=== PATIENT | female | born 1955 | race Caucasian/White ===

== ENCOUNTER 2020-01-31 08:02 | Outpatient (REF) | payer OTHER, SELFPAY ==
--- NOTE | 2020-01-31 08:02 | CT_ITS ---
EXAMINATION: CT CHEST WITH CONTRAST CLINICAL INFORMATION: Lung mass. COMPARISON: Chest x-ray of 01/15/2020, 08/29/2015. Selected images of the abdomen and pelvic CT of 07/27/2018. TECHNIQUE: Multidetector volumetric CT imaging of the chest was obtained after the administration of 65 mL of Omnipaque 350 intravenous contrast without immediate adverse reactions. Axial MIP volume rendering provided. Sagittal and coronal reformatted images were obtained. This CT examination was performed using dose optimization techniques as appropriate, variously including the following: *Automated exposure control *Adjustment of mA and/or kV according to patient size (this includes techniques or standardized protocols for targeted exams where dose is matched to indication/reason for exam; i.e. extremities or head) *Use of iterative reconstruction technique DLP: 101 mGy-cm FINDINGS: LUNGS: There is a large somewhat bilobed heterogeneous mass in the right upper lobe paramediastinal location extending from the lung apex to the level of the distal right main pulmonary artery. There is extrinsic mass effect over the distal right main pulmonary artery and right upper lobe lobar pulmonary artery. There is attenuation of the right upper lobe lobar pulmonary artery which appears to demonstrate enhancement suggesting patency. Large portion of this mass is hypodense in appearance suggestive of internal necrosis. There are solid-appearing areas of heterogeneous enhancement at the junction of upper two thirds and lower two thirds of the mass at the level of lobulation/pulmonary vasculature. The mass is closely abutting the pleura at the superior margin anteromedially and largely appears inseparable from the mediastinal margin of the pleura. The mass slightly extends into the mediastinal fat. It measures approximately 9.8 x 8.6 x 5.4 cm in maximum length, AP and transverse dimensions respectively. Mild ground-glass changes, interstitial septal thickening and vascular engorgement is noted around this mass in the upper lobe. Endobronchial filling defects are noted in the inferior right upper lobe anteromedially. Mild paraseptal emphysematous changes at the lung apices and centrilobular emphysematous changes are noted in the upper lobes. Ill-defined somewhat rounded ground-glass changes are noted in the right lower lobe (series 7 image 235, 253 with the largest one seen on image 253 measuring 1.8 cm. Mild bronchial thickening is noted in the right lower lobe. MEDIASTINUM: Borderline and mildly prominent mediastinal lymph nodes are noted, the largest one in the mid pretracheal region measures 1.1 cm in short axis (series 7 image 150). Precarinal subcentimeter lymph nodes are seen. No evidence of left hilar adenopathy. Evaluation for right hilar adenopathy is limited. The trachea and mainstem bronchi are well patent. There is narrowing of the right upper lobe lobar bronchus related to extrinsic mass effect from the right upper lobe mass. Cardiac size is normal. Central pulmonary arteries are normal in caliber. Aorta is normal in caliber. Scattered aortic calcifications. PLEURA: There is no pleural effusion. No pleural mass or thickening. AXILLA: No lymphadenopathy. CHEST WALL SOFT TISSUES: No evidence of internal mammary chain adenopathy. There is no definite evidence of extension of the right upper lobe lung mass into the chest wall soft tissues. UPPER ABDOMEN: Mild fullness of the visualized adrenal glands is noted without discrete nodule. Postcholecystectomy changes are noted. OSSEOUS STRUCTURES: No acute or suspicious osseous lesion. IMPRESSION: A large bilobed right upper lobe paramediastinal heterogeneously enhancing necrotic lung mass is consistent with malignant neoplasm, unless proven otherwise. A few borderline and mildly prominent mediastinal lymph nodes with the largest pretracheal lymph node measuring 1.1 cm in short axis.
[2020-01-31 09:51] LABS: Blood Urea Nitrogen 10 mg/dL (9-16); Estimated Glomerular Filt Rate > 60
[2020-01-31] MEDS: iohexoL 350 MG/ML 100 ML INFUS..BTL IV (10:56)
== END 2020-01-31 08:03 | disposition home or self-care (01) ==
LOC: HO.CT 08:02
PROVIDERS: PCP Internal Medicine; Visit Provider Internal Medicine
DX: R91.8 Other nonspecific abnormal finding of lung field (principal); R05 Cough
CPT/HCPCS: 71260; 82565; 84520

== ENCOUNTER 2020-01-31 09:26 | Outpatient (REF) | payer OTHER, SELFPAY | END 2020-01-31 09:27 | disposition home or self-care (01) | LOC: HO.RESP 09:26 | PROVIDERS: Visit Provider Internal Medicine | DX: D49.1 Neoplasm of unspecified behavior of respiratory system (principal) ==

== ENCOUNTER → 2020-02-09 09:14 | Outpatient (BNVA) | payer OTHER, SELFPAY | PROVIDERS: PCP Internal Medicine; Referring Provider Internal Medicine; Visit Provider Surgery | DX: R91.8 Other nonspecific abnormal finding of lung field (principal); R59.0 Localized enlarged lymph nodes; F17.200 Nicotine dependence, unspecified, uncomplicated; Z91.048 Other nonmedicinal substance allergy status; Z79.899 Other long term (current) drug therapy | CPT/HCPCS: 99205 ==

== ENCOUNTER 2020-02-21 13:12 | Outpatient (REF) | payer OTHER, SELFPAY ==
--- NOTE | 2020-02-21 13:28 | MR_ITS ---
EXAMINATION: MR BRAIN WITHOUT AND WITH CONTRAST CLINICAL INFORMATION: Right pulmonary malignancy. Metastatic disease workup. COMPARISON: PET/CT from 02/20/2020. TECHNIQUE: MRI of the brain was obtained using routine sequences without and with contrast following the administration of 7 mL of Gadavist intravenous contrast. FINDINGS: No focal restricted diffusion is demonstrated to suggest acute or subacute cerebral ischemia. No evidence of acute or chronic hemorrhagic products on heme-sensitive imaging. Scattered periventricular and deep white matter T2 FLAIR hyperintensities consistent with mild underlying microangiopathy. The ventricles are normal in morphology and size. No abnormal mass effect. No midline shift. Normal appearance of the pituitary gland. No abnormalities of the posterior fossa with normal appearance of the brainstem and cerebellum. Normal arterial and venous vascular flow voids are present. No abnormal contrast enhancement. Normal, homogeneous marrow signal. Small Tornwaldt cyst. Mild leftward nasal septal deviation with spurring. Mild mucosal thickening of the paranasal sinuses. No signal abnormalities of the mastoids. MR/MR head/brain wo/w con IMPRESSION: 1. No acute intracranial abnormalities. No abnormal intracranial enhancement to suggest metastatic disease. 2. Mild underlying microangiopathy.
== END 2020-02-21 13:13 | disposition home or self-care (01) ==
LOC: HO.MRI 13:12
PROVIDERS: Visit Provider Surgery
DX: R91.8 Other nonspecific abnormal finding of lung field (principal); R59.0 Localized enlarged lymph nodes
CPT/HCPCS: 70553; A9585

== ENCOUNTER 2020-03-01 12:23 | Day surgery (SDC) | payer OTHER, SELFPAY ==
[2020-02-29 12:33] VITALS: BMI 26.0
--- NOTE | 2020-02-29 13:19 | P.CONAN_ITS ---
Documented by User: Marielena Nuno 02/29/20 13:24 HPI - Anesthesia Eval Consult details Narrative: 65yo F for Endoscopic Bronchial Ultrasound, Lung Mass biopsy, Lymph Node Biopsy [facility] Past Medical History Medical History Easy bruising History of arthritis History of sleep apnea Leg swelling Mass of upper lobe of right lung Persistent cough Shortness of Breath Wheezing Family History Family History Father Diabetes Colon cancer Mother Osteoporosis Social History Social History Smoking Status: Former smoker Tobacco Type: Cigarette Cigarettes Per Day: 3 Years Smoked: 50 Smoked in Last 30 Days: Yes Smoking Quit Date: 2 days ago Patient Interested in Nicotine Replacement: Yes Patient Given Instructions on How to Stop Smoking: Yes Date Education Initiated: 03/01/20 Second Hand Smoke Exposure: No Use of substances other than those prescribed or required for medical reasons: No Advance Directives: Yes Advance Directives Information Provided: Yes Advance Directives on File: Yes Advance Directives Date on File: 01/31/20 Meds Allergies Allergy/AdvReac Type Severity Reaction Status Date / Time birch tree Allergy Unknown swelling Uncoded 03/01/20 13:10 Exam Exam Date and Time: February 29, 2020 1319 Height,Weight and Vital Signs: Height 5 ft 5 in Weight 71 kg Pertinent Lab Results Pertinent Lab Results: Laboratory Tests 01/31/20 09:15 BUN 10 Creatinine 0.69 Assessment and Plan Assessment Anesthesia Assessment: Chart Reviewed Documented by User: Elisabet Cardoso 03/01/20 13:55 [facility] Past Medical History Medical History Easy bruising History of arthritis History of sleep apnea Leg swelling Mass of upper lobe of right lung Persistent cough Shortness of Breath Wheezing Family History Family History Father Diabetes Colon cancer Mother Osteoporosis Social History Social History Smoking Status: Former smoker Tobacco Type: Cigarette Cigarettes Per Day: 3 Years Smoked: 50 Smoked in Last 30 Days: Yes Smoking Quit Date: 2 days ago Patient Interested in Nicotine Replacement: Yes Patient Given Instructions on How to Stop Smoking: Yes Date Education Initiated: 03/01/20 Second Hand Smoke Exposure: No Use of substances other than those prescribed or required for medical reasons: No Advance Directives: Yes Advance Directives Information Provided: Yes Advance Directives on File: Yes Advance Directives Date on File: 01/31/20 Meds Allergies Allergy/AdvReac Type Severity Reaction Status Date / Time birch tree Allergy Unknown swelling Uncoded 03/01/20 13:10 Exam Airway Mallampati Class: II TM Dist: >3cm Neck ROM: Full Denture: Upper and Lower Assessment and Plan Assessment Anesthesia Assessment: Anesthesia Plan Discussed and Chart Reviewed Final Anesthetic Review NPO: Yes ASA Class: III Final Preanesthetic Review: No Changes in Pt Med Stat, Meds/Allgs Chart Revi ewed, Consent Obtained/Reviewed and Anes Risks/Benef Reviewed Patient Risk: Intermediate Procedure Risk: Intermediate Anesthetic Plan Anesthetic Plan: GA Disposition: Standard PACU
[2020-03-01] VITALS (7 sets, daily range): BP systolic 97–128; BP diastolic 48–68; PULSE 64–89; RESP 14–20; TEMP 36.2–36.3; O2SAT 92–100; BMI 25.6
[2020-03-01] MEDS: Lactated Ringers 1,000 ML 50 ML IVCONT (13:02)
--- NOTE | 2020-03-01 13:55 | MHC.SHP ---
Pre-Procedural Eval Section B Chief Complaint: Enlarged Lymph Nodes, Pulmonary Nodule Allergies: Allergies Allergy/AdvReac Type Severity Reaction Status Date / Time birch tree Allergy Unknown swelling Uncoded 03/01/20 13:10 Plan Patient has been examined and remains a candidate for the planned procedure
--- NOTE | 2020-03-01 15:31 | PM.OP ---
Brief Operative Note Date of Service: 03/01/20 Pre-op diagnosis: Right upper lobe lung mass and mediastinal lymphadenopathy Post-op diagnosis: other (Right upper lobe lung cancer with metastasis to the mediastinal lymph nodes) Procedure: Endobronchial ultrasound with biopsies multiple stations and mediastinal/right upper lobe mass Implants: None Surgeon: Devaughn Ahn MD Anesthesia: GETA Estimated blood loss (mL): 5 Pathology: other (Positive on-site pathology for malignancy in mediastinal lymph nodes and mass) Condition: stable Disposition: PACU
[2020-03-01] MEDS: Throat Lozenge, Medicated LOZENGE 1 LOZENGE MUCOUS MEM ×2 (16:19→16:21)
--- NOTE | 2020-03-02 01:42 | OP_ITS ---
SURGEON: Devaughn Ahn MD PREOPERATIVE DIAGNOSIS: Right upper lobe lung mass and mediastinal lymphadenopathy. POSTOPERATIVE DIAGNOSIS: Right upper lobe lung cancer with metastasis to the mediastinal lymph nodes. PROCEDURE PERFORMED: Endobronchial ultrasound with biopsy of multiple lymph node stations and right upper lobe lung mass. ESTIMATED BLOOD LOSS: Minimal. COMPLICATIONS: ANESTHESIA: General. ASSISTANTS: SPECIMENS: Right paratracheal lymph nodes, right paratracheal mass, subcarinal lymph nodes. INDICATIONS FOR OPERATION: This is a 65-year-old woman smoker who had experienced some right-sided chest pain and had a CT scan of the chest showing a 9 cm bilobed mass in the right upper lobe as well as mediastinal lymphadenopathy. PET scan done showed increased uptake within the mass and less uptake within the mediastinal lymph nodes. Of note, the mass does abut the right main pulmonary artery just prior to takeoff of the first branch. Given these findings, I have discussed with her the risks, benefits, and alternatives of endobronchial ultrasound, which she understood and agreed to proceed. OPERATION IN DETAIL: On the day of operation, the patient was brought to the operating room, placed supine on the operating table. Anesthesia monitoring devices were placed. The patient was intubated with an 8.5-Slovak endotracheal tube. A time-out was performed confirming the correct patient, site, and procedure. The Olympus endobronchial ultrasound scope was then inserted through the endotracheal tube and a standard bronchoscopy was done visualizing both sides down to the subsegmental level. There were no endobronchial lesions and no secretions. We then did a scanning endobronchial ultrasound. There was an apparent right paratracheal what appeared to be the mass separate from a different right paratracheal lymph node and an enlarged abnormal-appearing subcarinal lymph node. The left-sided paratracheal lymph nodes were normal size and appearance and quite diminutive actually. We first positioned over the right paratracheal lymph node, did multiple biopsies of this, confirming the malignancy. Once we confirmed malignancy, additional passes with the 19-gauge Olympus endobronchial ultrasound needle were used and placed directly in cell block for additional material hopefully for markers. We then proceeded to the right paratracheal mass and did this again confirming malignancy here and again multiple passes were taken and placed directly in satellite for cell block. We then went to a subcarinal lymph node, which appeared very abnormal and enlarged and multiple biopsies of this were taken and sent for on-site evaluation again positive for malignancy, and again multiple passes were taken and placed directly in satellite for cell block. This was all done with the 19-gauge Olympus endobronchial ultrasound needle. Once this was complete, hemostasis was assured and the scope and all equipment was removed. The patient was extubated in the operating room, brought to the recovery room in stable condition. MD JORGE López/KAYLAH / [id number]
== END 2020-03-01 16:26 | disposition home or self-care (01) ==
PROVIDERS: PCP Internal Medicine; Visit Provider Surgery
PROC: (CPT 31629; principal; 2020-03-01 14:00)
DX: C34.91 Malignant neoplasm of unspecified part of right bronchus or lung (principal); C77.1 Secondary and unspecified malignant neoplasm of intrathoracic lymph nodes; R05 Cough; F17.210 Nicotine dependence, cigarettes, uncomplicated
CPT/HCPCS: 31629; 31653; 88172; 88173; 88177; 88305; 88341; 88342; 88360; J2250; J2370; J3010

== ENCOUNTER → 2020-03-08 08:49 | Outpatient (BNVA) | payer OTHER, SELFPAY | PROVIDERS: PCP Internal Medicine; Referring Provider Internal Medicine; Visit Provider Surgery | DX: C34.11 Malignant neoplasm of upper lobe, right bronchus or lung (principal); R59.0 Localized enlarged lymph nodes | CPT/HCPCS: 99214 ==

== ENCOUNTER → 2021-07-25 | Outpatient (RCR) | payer OTHER, SELFPAY ==
[2020-03-18 08:13] VITALS: BP 135/75; PULSE 81; RESP 18; TEMP 36.6; O2SAT 95; BMI 26.3
[2020-03-18] MEDS: oxyCODONE HCl Immed Release 5 MG TABLET PO (09:02)
[2020-03-18 09:03] LABS: MANUAL DIFF FLAG NO
[2020-03-18 09:08] LABS: Basophils Percent Auto 0.3 % (0-2); Eosinophils Absolute Auto 0.5 X10*3/uL (0.0-0.4); Eosinophils Percent Auto 4.7 % (0-4); Hemoglobin 12.7 g/dl (12.0-16.0); Imm Gran Abs Auto 0.04 X10*3/uL (0.00-0.03); Imm Gran Pct Auto 0.4 % (0.0-0.4); Lymphocytes Absolute Auto 1.5 X10*3/uL (1.2-4.9); Lymphocytes Percent Auto 14.1 % (20-40); Mean Corpuscular HGB Conc 32.6 g/dl (31.0-35.0); Mean Corpuscular Hemoglobin 29.8 pg (27.0-33.0); Mean Corpuscular Volume 91.5 fL (80-98); Mean Platelet Volume 9.5 fL (9.4-12.3); Monocytes Absolute Auto 1.2 X10*3/uL (0.1-1.2); Monocytes Percent Auto 11.4 % (2-11); Neutrophils Absolute Auto 7.3 X10*3/uL (2.0-8.3); Neutrophils Percent Auto 69.1 % (45-73); Platelet Count 275 X10*3/uL (160-400); Red Blood Count 4.26 X10*6/uL (4.20-5.50); White Blood Count 10.6 X10*3/uL (4.8-10.8)
--- NOTE | 2020-03-18 09:26 | P.CNHO_ITS ---
Subjective - Subjective Chief complaint: Consult for Squamous Cell carcinoma of Lung, IIIB. Patient: new to practice Consult date: 03/18/20 Requesting Physician: Johnathon. Primary Care Provider: Hebrert Diego MD Medical Summary: DIAGNOSIS: SQUAMOUS CELL CANCER OF LUNG. HPI - Consult Narrative Reason for consult: SQUAMOUS CELL LUNG CANCER. Narrative: Kathie Munoz is a pleasant 65 year old lady, who had symptoms onset back in November. it started with a dry cough. She noted pain in the back of the chest, in between her ribs, especially on exertion, i.e while doing dishes. She recently moved into a new home. While getting out of the tub she fell. She was taken to [facility] [place]. She needed stitches on her scalp. She went to Dr. Diego to have the tequila out. She mentioned the cough and CP. He proceeded with a Cat scan of the chest which revealed: A large bilobed right upper lobe paramediastinal heterogeneously enhancing necrotic lung mass is consistent with malignant neoplasm, unless proven otherwise. A few borderline and mildly prominent mediastinal lymph nodes with the largest pretracheal lymph node measuring 1.1 cm in short axis. She saw Dr. Ahn. He proceeded with a PET scan. This showed: A large intensely FDG avid pulmonary mass with some central necrosis and ca vitation is present in the right upper lobe. This is most consistent with a primary pulmonary malignancy. A single mildly enlarged mid right rectal mediastinal lymph node is present with only minimal FDG activity. This is nonspecific. No additional abnormalities suspicious for metastatic or other malignant lesions are noted. MRI of the head was done as part of the staging. This revealed: Acute intracranial abnormalities. No abnormal intracranial enhancement to suggest metastatic disease. Mild underlying microangiopathy. She also had an Endobrochial U/S and biopsy of the right paratracheal lymph node on 03/[address] Ahn. This revealed: Squamous cell carcinoma, poorly differentiated. Subcarinal lymph node: Metastatic squamous cell carcinoma. PDL 1 and Bautista-TRK studies are case studies are pending. . Review of Systems - Constitutional Reports lack of energy, Reports malaise, Reports weakness, Reports weight loss - Eyes Reports blurry vision - ENT Reports system reviewed and no additional complaints, except as documented Comments: Neck pain, since after the biopsy. grades it as 10 on 1-10 scale. been taking Advil 200 as needed. - Cardiovascular Reports chest pain, Reports shortness of breath Comments: on exertion - Respiratory Reports cough - Gastrointestinal Denies abdominal pain, Denies bloating, Denies bright, red blood in stools, Denies change in bowel habits Comments: colonoscopy 12 years ago, negative - Genitourinary Denies difficulty starting urination - Musculoskeletal Denies back pain - Integumentary/Breasts Skin/Breast: Denies acne - Neurologic Reports system reviewed and no additional complaints, except as documented - Psychiatric Reports anxiety - Endocrine Denies excessive sweating - Hematologic/Lymphatic Denies easy bleeding - Allergic/Immunologic Denies GI upset with certain foods PMFSH Medical History: Medical History (Last Updated 03/18/20 @ 08:21 by Charlotte Fontaine RN) Easy bruising History of arthritis History of sleep apnea Leg swelling Mass of upper lobe of right lung Persistent cough Shortness of Breath Wheezing Functional capacity: independent ambulation Patient : No Family History: Family History (Last Reviewed 03/08/20 @ 12:31 by Devaughn Ahn MD) Father Diabetes Colon cancer Mother Osteoporosis Surgical History: Surgical History (Last Updated 03/18/20 @ 08:21 by Charlotte Fontaine RN) History of appendectomy Hx of cholecystectomy Smoking status: Former smoker Home Medications and Allergies Home Medications Medication Instructions Recorded Confirmed Type ibuprofen [Advil] 400 mg PO Q8H PRN 03/18/20 03/18/20 History Allergies Allergy/AdvReac Type Severity Reaction Status Date / Time birch tree Allergy Mild swelling Uncoded 03/18/20 08:22 Physical Exam Vital signs: Vital Signs Temp 97.8 F 03/18/20 08:13 Pulse 81 03/18/20 08:13 Resp 18 03/18/20 08:13 BP 135/75 03/18/20 08:13 Pulse Ox 95 03/18/20 08:13 Intake & Output 03/17/20 03/18/20 03/18/20 18:59 06:59 18:59 Other: Weight 71.8 kg Weight 71.8 kg - Constitutional Present: moderate distress - Routine HEENT Exam Head: Present: normal inspection ENT: Present: mucous membranes moist - Routine Neck Exam Present: supple - Routine Respiratory Exam Present: decreased breath sounds, CTAB - Routine Cardiovascular Exam Cardiovascular: Present: RRR, S1, S2 - Routine Abdominal Exam Present: soft, nontender - Routine Extremities Exam Present: nontender - Routine Back/Spine/Pelvis Exam Back/Spine: Present: full ROM - Routine Skin Exam Present: intact - Routine Neurological Exam Present: alert, oriented X3 - Detailed Neurological Exam: Coma Scale Eye Opening: Spontaneous (4) - Routine Psychiatric Exam Present: anxious Hem/Onc Consult Result - Labs CBC & Chem 7: 03/18/20 09:00 03/18/20 09:00 Labs: Short CBC 03/18/20 Range/Units 09:00 WBC 10.6 (4.8-10.8) X10*3/uL Hgb 12.7 (12.0-16.0) g/dl Hct 39.0 (37-47) % Plt Count 275 (160-400) X10*3/uL Assessment and Plan (1) Squamous cell carcinoma of right lung Status: Acute This is a pleasant unfortunate 65-year-old lady, who had onset of symptoms back in November. It started with a cough and chest pain radiating towards the back. Further workup, as detailed above, revealed a Squamous Cell Carcinoma of the lung with positive pretracheal and mediastinal lymph node. Stage IIIB. I shared the results with her. Mentioned that at this point, she is unresectable. I offered her combined modality therapy. PLAN: To proceed with combined modality therapy with radiation along with systemic chemotherapy. According to the NCCN guidelines, Will use upfront carboplatin AUC of 2 and paclitaxel 50 milligrams/meter squared weekly, with concurrent RT plus additional 2 cycles every 21 days of full-dose carbo Taxol. If there is no progression after the 2 cycles, of concurrent chemoradiation, she can then get Durvalumab, 10 milligrams/kilograms IV every 2 weeks for up to 12 months. She has an appointment with radiation therapy tomorrow. Will coordinate with them, regarding the timings of treatment. She will get baseline labs today. I gave her a dose of oxycodone here, since it worked I gave her a prescription to take at home q.8 hours as needed for the pain. She will return in a week for a follow-up visit. All her & her 's questions were answered to their satisfaction. Thanks, CC: Dr. Diego. Dr. Ahn. Addendum: She met with Dr. Rudolph, at [facility]. They are currently proceeding with treatment planning. She would be ready to begin treatment in a couple of weeks time. She will return for chemotherapy teaching next week.
[2020-03-18 09:41] LABS: Alanine Aminotransferase 8 U/L (0-31); Albumin Level 3.8 g/dL (3.5-5.0); Alkaline Phosphatase 81 U/L (39-117); Anion Gap 12 (12-20); Aspartate Amino Transferase 10 U/L (5-31); Bilirubin Total 0.4 mg/dL (0.0-1.0); Blood Urea Nitrogen 14 mg/dL (9-16); Calcium 9.1 mg/dL (8.4-10.2); Carbon Dioxide 24 mmol/L (22-29); Chloride 105 mmol/L (96-108); Creatinine Clr Calc Pharmacy 92.2; Estimated Glomerular Filt Rate > 60; Glucose Random 82 mg/dL (60-115); Potassium 4.3 mmol/l (3.3-5.1); Sodium 137 mmol/L (135-145); Total Protein 6.6 g/dL (6.5-8.0)
--- NOTE | 2020-03-18 10:14 | MHC.HEMONCSW ---
PT IS A 65 Y.O. FEMALE, ACCOMPANIED BY TODAY FOR INITIAL CONSULT. INDEPENDENT, ABLE TO MAKE NEEDS KNOWN. HEALTH CARE PROXY COMPLETED, NAMED HER . DIAGNOSIS IS RIGHT LUNG ADENOCARCINOMA MOOD AND AFFECT IS APPROPRIATELY ANXIOUS, WHICH SHE ATTRIBUTES TO #12 PAIN SCALE...MD MEDICATED PT. PLAN IS CONSULT [facility] RADIATION TOMORROW. TO BEGIN CHEMOTHERAPY HERE SOON. EDUCATION, RESOURCES, GUIDANCE AND SUPPORT PROVIDED. BOTH ARE AWARE OF MY AVAILABILITY.
[2020-03-20 14:25] VITALS: BMI 26.3
--- NOTE | 2020-03-22 11:10 | MHC.HEMONCSW ---
DURVALUMAB PA WENT TO [facility] CLINICAL REVIEW J CODE [id number] REFERENCE# [id number] WAIT DECISION. PACLITAXEL NO PA REQUIRED REFERENCE# [id number]. CARBOPLATIN NO PA REQUIRED, REFERENCE # AT [employer] # [id number]
--- NOTE | 2020-03-25 14:39 | MHC.HEMONCSW ---
JEANETTE APPROVED [facility] DATE RANGE...03/25/20 TO 09/21/19 REFERENCE# [id number]
[2020-03-28 08:41] VITALS: BP 132/76; PULSE 84; RESP 20; TEMP 36.4; O2SAT 95
[2020-03-28 08:42] VITALS: BMI 27.0
--- NOTE | 2020-03-28 10:07 | MHC.HEMONC ---
Pt seen by Dr Leonard and had chemo teach. She will start chemoradiation on Wednesday followed by Immunotherapy. Common side effects reviewed and pt plan reviewed. Ondansetron ordered for pt at home and she is aware.
--- NOTE | 2020-03-28 10:30 | MHC.HEMONCSW ---
PATIENT HERE FOR CHEMOTHERAPY TEACH. REPORTS COPING FAIRLY WELL, GLAD TREATMENT IS BEGINNING. DENIES NEW STRESS AND COMPLAINTS AT THIS TIME. PATIENT IS AWARE OF MY AVAILABILITY.
--- NOTE | 2020-03-28 17:38 | PM.HEMONCPN ---
Medical Summary - Medical Summary Date of Service: 03/28/20 Medical Summary: DIAGNOSIS: SQUAMOUS CELL CANCER OF LUNG. Interval History Interval history: Kathie Munoz is a pleasant 65 year old lady, here for a follow-up visit. She tells me she has ongoing pain in her neck and right shoulder. She has been taking Advil every 4 hours, during the day. She takes oxycodone only at night. Occasionally she would take 1 in the morning. She does sleep better, now. She was getting constipated however with the MiraLax it has helped. She is going regularly now. She denies chest pain or trouble breathing. Abdominal pain nausea vomiting heartburn indigestion. Her bowels are working without any gross blood in it. Her appetite is not that good. She has lost weight. Spirits are down. Rest of the review of systems is unremarkable. Previous history: She had symptoms onset back in November. it started with a dry cough. She noted pain in the back of the chest, in between her ribs, especially on exertion, i.e while doing dishes. She recently moved into a new home. While getting out of the tub she fell. She was taken to [facility] [place]. She needed stitches on her scalp. She went to Dr. Diego to have the tequila out. She mentioned the cough and CP. He proceeded with a Cat scan of the chest which revealed: A large bilobed right upper lobe paramediastinal heterogeneously enhancing necrotic lung mass is consistent with malignant neoplasm, unless proven otherwise. A few borderline and mildly prominent mediastinal lymph nodes with the largest pretracheal lymph node measuring 1.1 cm in short axis. She saw Dr. Ahn. He proceeded with a PET scan. This showed: A large intensely FDG avid pulmonary mass with some central necrosis and cavitation is present in the right upper lobe. This is most consistent with a primary pulmonary malignancy. A single mildly enlarged mid right rectal mediastinal lymph node is present with only minimal FDG activity. This is nonspecific. No additional abnormalities suspicious for metastatic or other malignant lesions are noted. MRI of the head was done as part of the staging. This revealed: Acute intracranial abnormalities. No abnormal intracranial enhancement to suggest metastatic disease. Mild underlying microangiopathy. She also had an Endobrochial U/S and biopsy of the right paratracheal lymph node on 03/[address] Ahn. This revealed: Squamous cell carcinoma, poorly differentiated. Subcarinal lymph node: Metastatic squamous cell carcinoma. PDL 1 and Bautista-TRK studies are case studies are pending. . Review of Systems - Constitutional Reports no additional constitutional complaints - Eyes Reports no additional eye complaints - ENT Reports no additional ear, nose, mouth, and throat complaints - Cardiovascular Reports no additional cardiovascular complaints - Respiratory Reports no additional respiratory complaints - Gastrointestinal Reports no additional gastrointestinal complaints - Genitourinary Reports no additional female genitourinary complaints - Musculoskeletal Reports no additional musculoskeletal complaints, Reports joint pain Comments: In her neck and shoulder. - Integumentary/Breasts Skin/Breast: Reports no additional skin complaints - Neurologic Reports no additional neurologic complaints, Reports weakness - Psychiatric Reports no additional psychiatric complaints - Endocrine Reports no additional endocrine complaints - Hematologic/Lymphatic Reports no additional hematologic/lymphatic complaints - Allergic/Immunologic Reports no additional allergic/immunologic complaints [facility] Medical History: Medical History (Last Updated 03/27/20 @ 09:32 by Herbert Diego MD) Carpal tunnel syndrome on both sides Easy bruising Hilar lymphadenopathy History of arthritis History of diverticulitis History of sleep apnea Hypercholesterolemia Leg swelling Mass of upper lobe of right lung Vitamin D deficiency Functional capacity: independent ambulation Family History: Family History (Last Reviewed 03/08/20 @ 12:31 by Devaughn Ahn MD) Father Diabetes Colon cancer Mother Osteoporosis Surgical History: Surgical History (Last Updated 03/25/20 @ 12:12 by Lily Evans [facility]) History of appendectomy History of carpal tunnel release Hx of cholecystectomy Smoking status: Former smoker Home Medications and Allergies Home Medications Medication Instructions Recorded Confirmed Type ibuprofen [Advil] 400 mg PO Q8H PRN 03/18/20 03/18/20 History Allergies Allergy/AdvReac Type Severity Reaction Status Date / Time birch tree Allergy Mild swelling Uncoded 03/18/20 08:22 Exam Vital signs: Vital Signs Temp 97.6 F 03/28/20 08:41 Pulse 84 03/28/20 08:41 Resp 20 03/28/20 08:41 BP 132/76 03/28/20 08:41 Pulse Ox 95 03/28/20 08:41 Intake & Output 03/27/20 03/28/20 03/28/20 18:59 06:59 18:59 Other: Weight 71.4 kg Weight 71.4 kg Body Mass Index 27.0 - Constitutional Present: moderate distress - Routine HEENT Exam Head: Present: normal inspection Eye: Present: normal appearance ENT: Present: mucous membranes moist - Routine Neck Exam Present: full ROM - Routine Respiratory Exam Present: decreased breath sounds, CTAB - Routine Cardiovascular Exam Cardiovascular: Present: RRR, S1, S2 - Routine Abdominal Exam Present: soft, nontender - Routine Rectal Exam Patient deferred: digital exam - Routine Extremities Exam Present: nontender - Routine Back/Spine/Pelvis Exam Back/Spine: Present: full ROM - Routine Skin Exam Present: intact - Routine Neurological Exam Present: alert, oriented X3 - Detailed Neurological Exam: Coma Scale Eye Opening: Spontaneous (4) - Routine Psychiatric Exam Present: normal affect Data - Labs CBC & Chem 7: 03/18/20 09:00 03/18/20 09:00 Labs: 03/18/20 08:42 oxyCODONE HCl Immed Release [Roxicodone] 5 mg PO ONCE ONE 03/18/20 09:00 CEA [Carcinoembryonic Antigen] Routine Complete Blood Count Auto Diff Routine Comprehensive Met. Panel Routine Laboratory Last Values WBC 10.6 X10*3/uL (4.8-10.8) 03/18/20 09:00 RBC 4.26 X10*6/uL (4.20-5.50) 03/18/20 09:00 Hgb 12.7 g/dl (12.0-16.0) 03/18/20 09:00 Hct 39.0 % (37-47) 03/18/20 09:00 MCV 91.5 fL (80-98) 03/18/20 09:00 MCH 29.8 pg (27.0-33.0) 03/18/20 09:00 MCHC 32.6 g/dl (31.0-35.0) 03/18/20 09:00 RDW 13.0 % (11.0-16.0) 03/18/20 09:00 Plt Count 275 X10*3/uL (160-400) 03/18/20 09:00 MPV 9.5 fL (9.4-12.3) 03/18/20 09:00 Immature Gran % (Auto) 0.4 % (0.0-0.4) 03/18/20 09:00 Neut % (Auto) 69.1 % (45-73) 03/18/20 09:00 Lymph % (Auto) 14.1 % (20-40) L 03/18/20 09:00 [place] % (Auto) 11.4 % (2-11) H 03/18/20 09:00 Eos % (Auto) 4.7 % (0-4) H 03/18/20 09:00 Baso % (Auto) 0.3 % (0-2) 03/18/20 09:00 Lymph # (Auto) 1.5 X10*3/uL (1.2-4.9) 03/18/20 09:00 [place] # (Auto) 1.2 X10*3/uL (0.1-1.2) 03/18/20 09:00 Eos # (Auto) 0.5 X10*3/uL (0.0-0.4) H 03/18/20 09:00 Baso # (Auto) 0.0 X10*3/uL (0.0-0.2) 03/18/20 09:00 Abs Immat Gran (auto) 0.04 X10*3/uL (0.00-0.03) H 03/18/20 09:00 Absolute Neuts (auto) 7.3 X10*3/uL (2.0-8.3) 03/18/20 09:00 Absolute Nucleated RBC 0.000 X10*3/uL (0.0-0.012) 03/18/20 09:00 Nucleated RBC % (auto) 0.0 /100WBC (0.0-0.2) 03/18/20 09:00 Sodium 137 mmol/L (135-145) 03/18/20 09:00 Potassium 4.3 mmol/l (3.3-5.1) 03/18/20 09:00 Chloride 105 mmol/L (96-108) 03/18/20 09:00 Carbon Dioxide 24 mmol/L (22-29) 03/18/20 09:00 Anion Gap 12 (12-20) 03/18/20 09:00 BUN 14 mg/dL (9-16) 03/18/20 09:00 Creatinine 0.62 mg/dL (0.5-1.4) 03/18/20 09:00 Estim Creat Clear Calc 92.2 03/18/20 09:00 Estimated GFR > 60 03/18/20:00 Random Glucose 82 mg/dL (60-115) 03/18/20 09:00 Calcium 9.1 mg/dL (8.4-10.2) 03/18/20 09:00 Total Bilirubin 0.4 mg/dL (0.0-1.0) 03/18/20:00 AST 10 U/L (5-31) 03/18/20:00 ALT 8 U/L (0-31) 03/18/20:00 Alkaline Phosphatase 81 U/L (39-117) 03/18/20:00 Total Protein 6.6 g/dL (6.5-8.0) 03/18/20:00 Albumin 3.8 g/dL (3.5-5.0) 03/18/20 09:00 Carcinoembryonic Ag 5.60 mg/mL 03/18/20 09:00 Progress Note: A/P (1) Squamous cell carcinoma of right lung Status: Acute Assessment and plan: This is a pleasant unfortunate 65-year-old lady, who had onset of symptoms back in November. It started with a cough and chest pain radiating towards the back. Further workup, as detailed above, revealed a Squamous Cell Carcinoma of the lung with positive pretracheal and mediastinal lymph node. Stage IIIB. I shared the results with her, at her last visit. Mentioned that at this point, she is unresectable. I offered her combined modality therapy. PLAN: To proceed with combined modality therapy with radiation along with systemic chemotherapy. According to the NCCN guidelines, Will use upfront carboplatin AUC of 2 and paclitaxel 50 milligrams/meter squared weekly, with concurrent RT plus additional 2 cycles every 21 days of full-dose carbo Taxol. If there is no progression after the 2 cycles, of concurrent chemoradiation, she can then get Durvalumab, 10 milligrams/kilograms IV every 2 weeks for up to 12 months. She met with Dr. Rudolph, at [facility]. They are currently proceeding with treatment planning. She would be ready to begin treatment next week. She had chemotherapy teaching today. Details of the regimen including potential side effects of nausea vomiting diarrhea, renal toxicity, pancytopenia, need for antibiotics, blood transfusion as well as growth factors were all addressed with her. She understands and is willing to proceed. She has an appointment with radiation therapy on Wednesday afternoon. She will come here in the morning to get her treatment. She will get baseline labs today. I gave her a new prescription for oxycodone since she is running low. She will return on Wednesday follow-up visit. All her & her 's questions were answered to their satisfaction. Thanks, CC: Dr. Diego. Dr. Ahn. Dr. Rudolph. - Time Spent With Patient Total time spent is greater than 50% in coordination of care (as documented) at patient's floor/unit and/or counseling patient: 25 - 35 minutes
[2020-04-01 08:21] VITALS: BP 142/65; PULSE 82; RESP 18; TEMP 35.8; O2SAT 95; BMI 27.1
[2020-04-01 08:28] LABS: MANUAL DIFF FLAG NO
[2020-04-01 08:55] LABS: Basophils Percent Auto 0.5 % (0-2); Eosinophils Absolute Auto 0.7 X10*3/uL (0.0-0.4); Eosinophils Percent Auto 7.6 % (0-4); Hemoglobin 11.5 g/dl (12.0-16.0); Imm Gran Abs Auto 0.08 X10*3/uL (0.00-0.03); Imm Gran Pct Auto 0.9 % (0.0-0.4); Lymphocytes Absolute Auto 1.1 X10*3/uL (1.2-4.9); Mean Corpuscular HGB Conc 31.9 g/dl (31.0-35.0); Mean Corpuscular Hemoglobin 29.2 pg (27.0-33.0); Mean Corpuscular Volume 91.4 fL (80-98); Mean Platelet Volume 9.7 fL (9.4-12.3); Monocytes Absolute Auto 1.1 X10*3/uL (0.1-1.2); Monocytes Percent Auto 13.1 % (2-11); Neutrophils Absolute Auto 5.7 X10*3/uL (2.0-8.3); Neutrophils Percent Auto 64.9 % (45-73); Platelet Count 296 X10*3/uL (160-400); Red Blood Count 3.94 X10*6/uL (4.20-5.50); Red Cell Distribution Width 12.8 % (11.0-16.0); White Blood Count 8.7 X10*3/uL (4.8-10.8)
[2020-04-01 09:18] LABS: Alanine Aminotransferase 10 U/L (0-31); Albumin Level 3.4 g/dL (3.5-5.0); Alkaline Phosphatase 77 U/L (39-117); Anion Gap 11 (12-20); Aspartate Amino Transferase 9 U/L (5-31); Bilirubin Total 0.3 mg/dL (0.0-1.0); Blood Urea Nitrogen 14 mg/dL (9-16); Carbon Dioxide 26 mmol/L (22-29); Chloride 104 mmol/L (96-108); Creatinine Clr Calc Pharmacy 91.5; Estimated Glomerular Filt Rate > 60; Glucose Random 83 mg/dL (60-115); Potassium 4.4 mmol/l (3.3-5.1); Sodium 137 mmol/L (135-145); Total Protein 6.2 g/dL (6.5-8.0)
[2020-04-01] MEDS: Acetaminophen 325 MG TABLET 650 MG PO (09:30)
[2020-04-01] MEDS: diphenhydrAMINE HCL 50 MG/ML VIAL 25 MG IVPUSH (09:31)
[2020-04-01] MEDS: Famotidine/PF 20 MG/2 ML VIAL IVPUSH (09:32)
[2020-04-01] MEDS: dexAMETHasone sod phosphate/NS 12 MG/50 ML PIGGYBACK 200 MG IV (09:54)
[2020-04-01] MEDS: ondansetron HCL/NS 16 MG/50 ML PIGGYBACK 200 MG IV (10:11)
--- NOTE | 2020-04-01 13:32 | MHC.HEMONCSW ---
PT HERE FOR CHEMOTHERAPY. REPORTS COPING WELL, SLIGHTLY ANXIOUS BUT LOOKS FORWARD TO GETTING IT OVER WITH. PLAN IS RADIATION THEN FOLLOWED BY IMMUNOTHERAPY EDUCATION AND SUPPORT PROVIDED. RETIRED [employer] FOR [employer] IN [place]. PATIENT ENJOYED TELLING ME ABOUT HER WORK HISTORY. DOES NOT FEEL COUNSELING NEEDED. PATIENT IS AWARE OF MY AVAILABILITY..
--- NOTE | 2020-04-01 15:41 | MHC.HEMONC ---
Cycle 1, day 1: Paclitaxel and carbo well tolerated. No complaints or signs of reaction noted. VSS, patient to start radiation today at [facility]. Labs and protocol faxed to [phone]. Confirmation received.
[2020-04-08] VITALS (8 sets, daily range): BP systolic 121–164; BP diastolic 60–101; PULSE 86–92; RESP 18–22; TEMP 36.4–37; O2SAT 80–97; BMI 26.6
[2020-04-08 10:38] LABS: MANUAL DIFF FLAG NO
[2020-04-08 10:50] LABS: Basophils Percent Auto 0.4 % (0-2); Eosinophils Absolute Auto 0.4 X10*3/uL (0.0-0.4); Eosinophils Percent Auto 5.5 % (0-4); Hematocrit 35.7 % (37-47); Hemoglobin 11.8 g/dl (12.0-16.0); Imm Gran Abs Auto 0.09 X10*3/uL (0.00-0.03); Imm Gran Pct Auto 1.2 % (0.0-0.4); Lymphocytes Absolute Auto 0.9 X10*3/uL (1.2-4.9); Lymphocytes Percent Auto 12.2 % (20-40); Mean Corpuscular HGB Conc 33.1 g/dl (31.0-35.0); Mean Corpuscular Hemoglobin 29.9 pg (27.0-33.0); Mean Corpuscular Volume 90.4 fL (80-98); Mean Platelet Volume 9.9 fL (9.4-12.3); Monocytes Percent Auto 13.1 % (2-11); Neutrophils Absolute Auto 5.1 X10*3/uL (2.0-8.3); Neutrophils Percent Auto 67.6 % (45-73); Platelet Count 295 X10*3/uL (160-400); Red Blood Count 3.95 X10*6/uL (4.20-5.50); Red Cell Distribution Width 12.6 % (11.0-16.0); White Blood Count 7.6 X10*3/uL (4.8-10.8)
[2020-04-08 11:12] LABS: Alanine Aminotransferase 18 U/L (0-31); Albumin Level 3.3 g/dL (3.5-5.0); Alkaline Phosphatase 73 U/L (39-117); Anion Gap 9 (12-20); Aspartate Amino Transferase 12 U/L (5-31); Bilirubin Total 0.3 mg/dL (0.0-1.0); Blood Urea Nitrogen 16 mg/dL (9-16); Calcium 8.8 mg/dL (8.4-10.2); Carbon Dioxide 29 mmol/L (22-29); Chloride 103 mmol/L (96-108); Creatinine Clr Calc Pharmacy 85.3; Estimated Glomerular Filt Rate > 60; Glucose Random 85 mg/dL (60-115); Sodium 137 mmol/L (135-145); Total Protein 5.8 g/dL (6.5-8.0)
[2020-04-08] MEDS: dexAMETHasone sod phosphate/NS 12 MG/50 ML PIGGYBACK 200 MG IV (13:05)
[2020-04-08] MEDS: diphenhydrAMINE HCL 50 MG/ML VIAL 25 MG IVPUSH ×2 (13:24→14:55)
[2020-04-08] MEDS: ondansetron HCL/NS 16 MG/50 ML PIGGYBACK 200 MG IV (13:43)
[2020-04-08] MEDS: Hydrocortisone Sod Succ/PF 100 MG VIAL IVPUSH (14:55)
--- NOTE | 2020-04-08 16:46 | MHC.HEMONC ---
Transfusion reaction with Paclitaxel initiated at approx 1450 Please see transfusion reaction intervention for details Patient complained of difficulty breathing and numbness to face and lips Infusion stopped at [address] Good notified and at bedside Hydrocortisone 100mg and Benadryl 25 IV push administered at 1455. 02 applied at 4L NC Respiratory symptoms improved. See documented vital signs. All symptoms resolved and infusion resumed at 1537. No further complaints. Vital signs wnl. 02 sats 95% on room air, continuous [address] Good will order Dexamethasone at home for night prior to treatment and morning of for next cycle.
[2020-04-15 10:25] VITALS: BP 124/64; PULSE 84; RESP 18; TEMP 36.7; O2SAT 97; BMI 26.4
[2020-04-15 10:43] LABS: Basophils Percent Auto 0.2 % (0-2); Eosinophils Percent Auto 0.3 % (0-4); Hematocrit 37.8 % (37-47); Hemoglobin 12.6 g/dl (12.0-16.0); Imm Gran Abs Auto 0.06 X10*3/uL (0.00-0.03); Imm Gran Pct Auto 0.9 % (0.0-0.4); Lymphocytes Absolute Auto 0.3 X10*3/uL (1.2-4.9); Lymphocytes Percent Auto 5.1 % (20-40); MANUAL DIFF FLAG SCAN; Mean Corpuscular HGB Conc 33.3 g/dl (31.0-35.0); Mean Corpuscular Hemoglobin 30.2 pg (27.0-33.0); Mean Corpuscular Volume 90.6 fL (80-98); Mean Platelet Volume 9.8 fL (9.4-12.3); Monocytes Absolute Auto 0.6 X10*3/uL (0.1-1.2); Monocytes Percent Auto 8.7 % (2-11); Neutrophils Absolute Auto 5.5 X10*3/uL (2.0-8.3); Neutrophils Percent Auto 84.8 % (45-73); Platelet Count 286 X10*3/uL (160-400); Red Blood Count 4.17 X10*6/uL (4.20-5.50); Red Cell Distribution Width 12.7 % (11.0-16.0); SCAN SMEAR FLAG 1; White Blood Count 6.5 X10*3/uL (4.8-10.8)
[2020-04-15 11:06] LABS: Alanine Aminotransferase 15 U/L (0-31); Albumin Level 3.8 g/dL (3.5-5.0); Alkaline Phosphatase 82 U/L (39-117); Anion Gap 13 (12-20); Aspartate Amino Transferase 9 U/L (5-31); Bilirubin Total 0.4 mg/dL (0.0-1.0); Blood Urea Nitrogen 13 mg/dL (9-16); Calcium 9.4 mg/dL (8.4-10.2); Carbon Dioxide 25 mmol/L (22-29); Chloride 105 mmol/L (96-108); Creatinine Clr Calc Pharmacy 87.6; Estimated Glomerular Filt Rate > 60; Glucose Random 98 mg/dL (60-115); Potassium 4.7 mmol/l (3.3-5.1); Sodium 138 mmol/L (135-145); Total Protein 6.5 g/dL (6.5-8.0)
[2020-04-15 11:21] LABS: SLIDE REVIEW VERIFIED
[2020-04-15] MEDS: Acetaminophen 325 MG TABLET 650 MG PO (11:56)
[2020-04-15] MEDS: Famotidine/PF 20 MG/2 ML VIAL IVPUSH (11:56)
[2020-04-15] MEDS: diphenhydrAMINE HCL 25 MG TABLET PO (11:56)
[2020-04-15] MEDS: ondansetron HCL/NS 16 MG/50 ML PIGGYBACK 200 MG IV (11:57)
[2020-04-15] MEDS: dexAMETHasone sod phosphate/NS 12 MG/50 ML PIGGYBACK 200 MG IV (12:22)
[2020-04-15 15:23] VITALS: BP 148/79; PULSE 83; RESP 24; O2SAT 88
[2020-04-15] MEDS: Hydrocortisone Sod Succ/PF 100 MG VIAL IVPUSH (15:24)
[2020-04-15] MEDS: diphenhydrAMINE HCL 50 MG/ML VIAL 25 MG IVPUSH (15:26)
[2020-04-15 15:30] VITALS: BP 111/59; PULSE 80; RESP 18; O2SAT 98
--- NOTE | 2020-04-15 16:25 | MHC.HEMONC ---
Infusion reaction with Paclitaxel. Patient reported SOB after approx 10 minutes of infusion. Infusion stopped. Dr. Leonard at bedside. Solu-cortef 100mg IV and Benadryl 25mg IV administered at 1526. [address] See acute infusion reaction intervention for further details. SOB resolved, patient asymptomatic- Dr. Leonard states to resume Paclitaxel. Paclitaxel infusing without symptoms.
[2020-04-15] MEDS: CARBOplatin 220 MG in 0.9 % Sodium Chloride 250 ML 544 MG IV (16:51)
[2020-04-15 16:56] VITALS: BP 120/57; PULSE 77; RESP 18; O2SAT 97
[2020-04-15 17:35] VITALS: BP 122/60; PULSE 75; RESP 18; O2SAT 97
[2020-04-22 10:38] LABS: Basophils Percent Auto 0.4 % (0-2); Eosinophils Percent Auto 0.2 % (0-4); Hematocrit 36.4 % (37-47); Hemoglobin 12.2 g/dl (12.0-16.0); Imm Gran Abs Auto 0.07 X10*3/uL (0.00-0.03); Imm Gran Pct Auto 1.3 % (0.0-0.4); Lymphocytes Absolute Auto 0.3 X10*3/uL (1.2-4.9); Lymphocytes Percent Auto 5.9 % (20-40); MANUAL DIFF FLAG SCAN; Mean Corpuscular HGB Conc 33.5 g/dl (31.0-35.0); Mean Corpuscular Hemoglobin 30.1 pg (27.0-33.0); Mean Corpuscular Volume 89.9 fL (80-98); Mean Platelet Volume 9.4 fL (9.4-12.3); Monocytes Absolute Auto 0.8 X10*3/uL (0.1-1.2); Monocytes Percent Auto 13.8 % (2-11); Neutrophils Absolute Auto 4.3 X10*3/uL (2.0-8.3); Neutrophils Percent Auto 78.4 % (45-73); Platelet Count 232 X10*3/uL (160-400); Red Blood Count 4.05 X10*6/uL (4.20-5.50); SCAN SMEAR FLAG 1; White Blood Count 5.4 X10*3/uL (4.8-10.8)
[2020-04-22 10:43] VITALS: BP 118/65; PULSE 89; RESP 20; TEMP 36.4; O2SAT 98; BMI 25.9
[2020-04-22 11:05] LABS: Alanine Aminotransferase 11 U/L (0-31); Albumin Level 3.6 g/dL (3.5-5.0); Alkaline Phosphatase 73 U/L (39-117); Anion Gap 14 (12-20); Aspartate Amino Transferase 10 U/L (5-31); Bilirubin Total 0.4 mg/dL (0.0-1.0); Blood Urea Nitrogen 12 mg/dL (9-16); Calcium 9.4 mg/dL (8.4-10.2); Carbon Dioxide 25 mmol/L (22-29); Chloride 103 mmol/L (96-108); Creatinine Clr Calc Pharmacy 89.8; Estimated Glomerular Filt Rate > 60; Glucose Random 105 mg/dL (60-115); Potassium 4.8 mmol/l (3.3-5.1); Sodium 137 mmol/L (135-145); Total Protein 6.4 g/dL (6.5-8.0)
[2020-04-22 12:16] LABS: SLIDE REVIEW VERIFIED
[2020-04-22] MEDS: ondansetron HCL/NS 16 MG/50 ML PIGGYBACK 200 MG IV (12:42)
[2020-04-22] MEDS: Acetaminophen 325 MG TABLET 650 MG PO (12:42)
[2020-04-22] MEDS: Famotidine/PF 20 MG/2 ML VIAL IVPUSH (13:08)
[2020-04-22] MEDS: dexAMETHasone sod phosphate/NS 12 MG/50 ML PIGGYBACK 200 MG IV (13:09)
[2020-04-22] MEDS: diphenhydrAMINE HCL 50 MG/ML VIAL IVPUSH (13:30)
--- NOTE | 2020-04-22 13:37 | MHC.HEMONC ---
NN Check in - Checked in bia Vázquez today during her chemo treatment. No Nurse Navigator needs a t this time. She was encouraged to reach out if she had any questions/concerns.
[2020-04-22] MEDS: Hydrocortisone Sod Succ/PF 100 MG VIAL IVPUSH (14:03)
--- NOTE | 2020-04-22 16:21 | MHC.HEMONC ---
Patient tolerated Cycle 4 Day 1: Paclitaxel/Carbo well tolerated. Patient premedicated with Solu-Cortef 100mg IV push and Benadryl 50 IV prior to Taxol. O2 monitoring in place. Vital signs stable. No respiratory distress noted or signs of reaction noted.
[2020-04-29 08:01] VITALS: BMI 25.9
[2020-04-29 10:19] VITALS: BP 111/63; PULSE 96; RESP 18; TEMP 36.2; O2SAT 97; BMI 25.4
[2020-04-29 10:51] LABS: Basophils Percent Auto 0.2 % (0-2); Imm Gran Abs Auto 0.05 X10*3/uL (0.00-0.03); Imm Gran Pct Auto 1.1 % (0.0-0.4); Lymphocytes Absolute Auto 0.3 X10*3/uL (1.2-4.9); MANUAL DIFF FLAG SCAN; Mean Corpuscular HGB Conc 33.3 g/dl (31.0-35.0); Mean Corpuscular Hemoglobin 30.2 pg (27.0-33.0); Mean Corpuscular Volume 90.5 fL (80-98); Mean Platelet Volume 9.8 fL (9.4-12.3); Monocytes Absolute Auto 0.5 X10*3/uL (0.1-1.2); Monocytes Percent Auto 11.3 % (2-11); Neutrophils Absolute Auto 3.6 X10*3/uL (2.0-8.3); Neutrophils Percent Auto 80.4 % (45-73); Platelet Count 156 X10*3/uL (160-400); Red Blood Count 3.98 X10*6/uL (4.20-5.50); Red Cell Distribution Width 13.2 % (11.0-16.0); SCAN SMEAR FLAG 1; White Blood Count 4.4 X10*3/uL (4.8-10.8)
[2020-04-29 11:34] LABS: Alanine Aminotransferase 20 U/L (0-31); Albumin Level 3.7 g/dL (3.5-5.0); Alkaline Phosphatase 86 U/L (39-117); Anion Gap 14 (12-20); Aspartate Amino Transferase 14 U/L (5-31); Bilirubin Total 0.4 mg/dL (0.0-1.0); Blood Urea Nitrogen 16 mg/dL (9-16); Calcium 9.5 mg/dL (8.4-10.2); Carbon Dioxide 26 mmol/L (22-29); Chloride 103 mmol/L (96-108); Estimated Glomerular Filt Rate > 60; Glucose Random 115 mg/dL (60-115); Sodium 138 mmol/L (135-145); Total Protein 6.4 g/dL (6.5-8.0)
[2020-04-29 12:25] LABS: SLIDE REVIEW VERIFIED
[2020-04-29] MEDS: ondansetron HCL/NS 16 MG/50 ML PIGGYBACK 200 MG IV (12:27)
[2020-04-29] MEDS: Acetaminophen 325 MG TABLET 650 MG PO (12:27)
[2020-04-29] MEDS: Famotidine/PF 20 MG/2 ML VIAL IVPUSH (13:43)
[2020-04-29] MEDS: dexAMETHasone sod phosphate/NS 12 MG/50 ML PIGGYBACK 200 MG IV (13:49)
[2020-04-29] MEDS: diphenhydrAMINE HCL 50 MG/ML VIAL IVPUSH (14:13)
[2020-04-29] MEDS: Hydrocortisone Sod Succ/PF 100 MG VIAL IVPUSH (14:34)
[2020-04-29 15:00] VITALS: BP 129/76; PULSE 89; RESP 18; O2SAT 98
[2020-04-29] MEDS: diphenhydrAMINE HCL 50 MG/ML VIAL 25 MG IVPUSH (15:17)
[2020-04-29] MEDS: Hydrocortisone Sod Succ/PF 100 MG VIAL 50 MG IVPUSH (15:18)
[2020-04-29 15:30] VITALS: BP 94/59; PULSE 89; RESP 18; O2SAT 98
[2020-04-29 15:38] VITALS: BP 106/57; PULSE 82; RESP 18; O2SAT 97
--- NOTE | 2020-04-29 16:51 | MHC.HEMONC ---
Acute infusion reaction with Paclitaxel- patient complained of shortness of breath and feeling hot approx 8 minutes into infusion. Patient flushed, breathing labored. Infusion stopped at 1453. O2 at 2L applied. Continuous monitoring in place. 02 sats improve to 96%. Dr. Leonard notified. Additional Benadryl and Hydrocortisone given at 1518. Paclitaxel resumed and completed without symptoms. Patient denies respiratory symptoms, 02 98% on room air. Patient has one cycle.
[2020-04-29 17:01] VITALS: BP 113/64; PULSE 81; RESP 18; O2SAT 98
[2020-05-06 10:47] VITALS: BP 113/57; PULSE 96; RESP 18; TEMP 36.2; O2SAT 98; BMI 25.2
[2020-05-06 11:28] LABS: Hematocrit 31.4 % (37-47); Imm Gran Abs Auto 0.03 X10*3/uL (0.00-0.03); Lymphocytes Absolute Auto 0.2 X10*3/uL (1.2-4.9); Lymphocytes Percent Auto 6.2 % (20-40); MANUAL DIFF FLAG SCAN; Mean Corpuscular Hemoglobin 30.6 pg (27.0-33.0); Mean Corpuscular Volume 87.2 fL (80-98); Mean Platelet Volume 10.3 fL (9.4-12.3); Monocytes Absolute Auto 0.2 X10*3/uL (0.1-1.2); Monocytes Percent Auto 7.9 % (2-11); Neutrophils Absolute Auto 2.5 X10*3/uL (2.0-8.3); Neutrophils Percent Auto 84.9 % (45-73); Platelet Count 120 X10*3/uL (160-400); Red Cell Distribution Width 13.7 % (11.0-16.0); SCAN SMEAR FLAG 1; White Blood Count 2.9 X10*3/uL (4.8-10.8)
[2020-05-06 11:54] LABS: Alanine Aminotransferase 16 U/L (0-31); Albumin Level 3.8 g/dL (3.5-5.0); Alkaline Phosphatase 82 U/L (39-117); Anion Gap 13 (12-20); Aspartate Amino Transferase 12 U/L (5-31); Bilirubin Total 0.8 mg/dL (0.0-1.0); Blood Urea Nitrogen 13 mg/dL (9-16); Calcium 9.3 mg/dL (8.4-10.2); Carbon Dioxide 25 mmol/L (22-29); Chloride 104 mmol/L (96-108); Creatinine Clr Calc Pharmacy 78.4; Estimated Glomerular Filt Rate > 60; Glucose Random 107 mg/dL (60-115); Potassium 4.7 mmol/l (3.3-5.1); Sodium 137 mmol/L (135-145); Total Protein 6.7 g/dL (6.5-8.0)
[2020-05-06 12:24] LABS: SLIDE REVIEW VERIFIED
[2020-05-06] MEDS: Acetaminophen 325 MG TABLET 650 MG PO (13:03)
[2020-05-06] MEDS: ondansetron HCL/NS 16 MG/50 ML PIGGYBACK 200 MG IV (13:04)
[2020-05-06] MEDS: Famotidine/PF 20 MG/2 ML VIAL IVPUSH (13:04)
[2020-05-06] MEDS: LORazepam 0.5 MG TABLET PO (13:04)
[2020-05-06] MEDS: diphenhydrAMINE HCL 50 MG/ML VIAL IVPUSH (13:26)
[2020-05-06] MEDS: dexAMETHasone sod phosphate/NS 12 MG/50 ML PIGGYBACK 200 MG IV (13:47)
[2020-05-06] MEDS: Hydrocortisone Sod Succ/PF 100 MG VIAL IVPUSH (14:07)
[2020-05-06 14:45] VITALS: BP 120/63; PULSE 88; O2SAT 91
[2020-05-06 15:15] VITALS: BP 114/65; O2SAT 98
[2020-05-06 15:55] VITALS: BP 97/55; PULSE 85; RESP 18; O2SAT 97
[2020-05-06 16:32] VITALS: BP 111/57; PULSE 79; RESP 18; O2SAT 98
--- NOTE | 2020-05-06 17:02 | MHC.HEMONC ---
CYCLE 6: PACLITAXEL/CARBOPLATIN. Patient complained of shortness of breath, and warmth approx [address] infusion [address] Leonard at bedside. [address], 02 at 2L NC applied See Acute reaction intervention for further details. Patient able to complete Taxol without difficulty. Patient to complete radiation next week on Wednesday05/14/20 but has deferred one more cycle of chemotherapy. Follow up in one month with Dr. Leonard. to place order for PET scan.
--- NOTE | 2020-05-07 11:27 | PM.HEMONCPN ---
Medical Summary - Medical Summary Date of Service: 05/17/20 Chief complaint: Follow-up for week 6 of Carbo Taxol in combination with radiation. Medical Summary: DIAGNOSIS: SQUAMOUS CELL CANCER OF LUNG. CURRENT THERAPY: RADIATION THERAPY IN COMBINATION WITH WEEKLY CARBOTAXOL, HERE FOR WEEK 6. Interval History Interval history: Kathie Munoz is a pleasant 65 year old lady, here for a follow-up visit, and for her treatment. She has been receiving the carboplatin and Taxol weekly. After the 1st treatment she has had reactions to the Taxol. They have been mild. She has been taking p.o. Decadron at home. She then receives IV Benadryl 50 mg, Decadron 12 mg, famotidine 20 mg, hydrocortisone 100 mg IV and Tylenol 650 p.o. Today she had a brief reaction. Taxol was held for 15 minutes. And she was able to complete her treatment. She feels rather fatigued. Denies any fever nor chills. She denies chest pain or trouble breathing. Abdominal pain nausea vomiting heartburn indigestion. Her bowels are working without any gross blood in it. Her appetite is not that good. She has lost weight. She tells me she has ongoing pain in her neck and right shoulder. She has been taking Advil every 4 hours, during the day. She takes oxycodone only at night. Occasionally she would take 1 in the morning. She does sleep better, now. She was getting constipated however with the MiraLax it has helped. She is going regularly now. She is in good spirits. Rest of the review of systems is unremarkable. Previous history: She had symptoms onset back in November. it started with a dry cough. She noted pain in the back of the chest, in between her ribs, especially on exertion, i.e while doing dishes. She recently moved into a new home. While getting out of the tub she fell. She was taken to [facility] [place]. She needed stitches on her scalp. She went to Dr. Diego to have the tequila out. She mentioned the cough and CP. He proceeded with a Cat scan of the chest which revealed: A large bilobed right upper lobe paramediastinal heterogeneously enhancing necrotic lung mass is consistent with malignant neoplasm, unless proven otherwise. A few borderline and mildly prominent mediastinal lymph nodes with the largest pretracheal lymph node measuring 1.1 cm in short axis. She saw Dr. Ahn. He proceeded with a PET scan. This showed: A large intensely FDG avid pulmonary mass with some central necrosis and cavitation is present in the right upper lobe. This is most consistent with a primary pulmonary malignancy. A single mildly enlarged mid right rectal mediastinal lymph node is present with only minimal FDG activity. This is nonspecific. No additional abnormalities suspicious for metastatic or other malignant lesions are noted. MRI of the head was done as part of the staging. This revealed: Acute intracranial abnormalities. No abnormal intracranial enhancement to suggest metastatic disease. Mild underlying microangiopathy. She also had an Endobrochial U/S and biopsy of the right paratracheal lymph node on 03/[address] Ahn. This revealed: Squamous cell carcinoma, poorly differentiated. Subcarinal lymph node: Metastatic squamous cell carcinoma. PDL 1 and Bautista-TRK studies are case studies are pending. . Review of Systems - Constitutional Reports system reviewed and no additional complaints, except as documented, Reports lack of energy, Reports malaise, Reports weakness, Reports weight loss, Denies fever(s) - Eyes Reports system reviewed and no additional complaints, except as documented - ENT Reports system reviewed and no additional complaints, except as documented - Cardiovascular Reports system reviewed and no additional complaints, except as documented - Respiratory Reports no additional respiratory complaints - Gastrointestinal Reports system reviewed and no additional complaints, except as documented - Genitourinary Reports no additional female genitourinary complaints - Musculoskeletal Reports system reviewed and no additional complaints, except as documented - Integumentary/Breasts Skin/Breast: Reports no additional skin complaints - Neurologic Reports system reviewed and no additional complaints, except as documented, Reports weakness - Psychiatric Reports system reviewed and no additional complaints, except as documented - Endocrine Reports no additional endocrine complaints - Hematologic/Lymphatic Reports system reviewed and no additional complaints, except as documented - Allergic/Immunologic Reports system reviewed and no additional complaints, except as documented [facility] Medical History: Medical History (Last Updated 03/27/20 @ 09:32 by Herbert Diego MD) Carpal tunnel syndrome on both sides Easy bruising Hilar lymphadenopathy History of arthritis History of diverticulitis History of sleep apnea Hypercholesterolemia Leg swelling Mass of upper lobe of right lung Vitamin D deficiency Functional capacity: independent ambulation Patient : No Family History: Family History (Last Reviewed 03/08/20 @ 12:31 by Devaughn Ahn MD) Father Diabetes Colon cancer Mother Osteoporosis Surgical History: Surgical History (Last Updated 03/25/20 @ 12:12 by MARIA R Jasso) History of appendectomy History of carpal tunnel release Hx of cholecystectomy Social History: Social History (Last Updated 03/18/20 @ 08:21 by Charlotte Fontaine RN) Tobacco History: Smoking Status: Former smoker Tobacco Type: Cigarette Second Hand Smoke Exposure: No Advance Directives: Advance Directives Date on File: 01/31/20 Nutrition Assessment: Patient : No Smoking status: Former smoker Home Medications and Allergies Current Medications: Current Medications Generic Name Dose Route Start Last Admin Trade Name Freq PRN Reason Stop Dose Admin Hydrocortisone Sodium Succinate 100 mg 05/06/20 13:00 05/06/20 14:07 Hydrocortisone Sod Succ/Pf 100 Mg Vial IVPUSH 100 mg ONCE ROSENDO Administration Home Medications Medication Instructions Recorded Confirmed Type ibuprofen [Advil] 400 mg PO Q8H PRN 03/18/20 03/29/20 History Allergies Allergy/AdvReac Type Severity Reaction Status Date / Time birch tree Allergy Mild swelling Uncoded 03/18/20 08:22 Exam Vital signs: Vital Signs Temp 97.2 F 05/06/20 10:47 Pulse 79 05/06/20 16:32 Resp 18 05/06/20 16:32 BP 111/57 L 05/06/20 16:32 Pulse Ox 98 05/06/20 16:32 Intake & Output 05/06/20 05/07/20 05/07/20 18:59 06:59 18:59 Intake Total 635 / 635 Balance 635 / 635 Intake: Intake, IV Amount 635 / 635 CARBOplatin 200 mg In 0.9 % 270 / 270 Sodium Chloride 250 ml @ 540 mls/hr IV ONCE ROSENDO Rx#: [id number] PACLitaxeL 90 mg In 0.9 % 265 / 265 Sodium Chloride 250 ml @ 265 mls/hr IV ONCE ROSENDO Rx#: [id number] dexAMETHasone sod phosphate/NS 50 / 50 12 mg In 50 ml @ 200 mls/hr IV ONCE ROSENDO Rx#:[id number] ondansetron HCL/NS 16 mg In 50 50 / 50 ml @ 200 mls/hr IV ONCE ROSENDO Rx# :[id number] Other: Weight 66.7 kg Weight 66.7 kg Body Mass Index 25.2 - Constitutional Present: moderate distress - Routine HEENT Exam Head: Present: normal inspection Eye: Present: normal appearance ENT: Present: mucous membranes moist - Routine Neck Exam Present: full ROM - Routine Respiratory Exam Present: decreased breath sounds, CTAB - Routine Cardiovascular Exam Cardiovascular: Present: RRR, S1, S2 - Routine Abdominal Exam Present: soft, nontender - Routine Rectal Exam Patient deferred: digital exam - Routine Extremities Exam Present: nontender - Routine Back/Spine/Pelvis Exam Back/Spine: Present: full ROM - Routine Skin Exam Present: intact - Routine Neurological Exam Present: alert, oriented X3 - Detailed Neurological Exam: Coma Scale Eye Opening: Spontaneous (4) - Routine Psychiatric Exam Present: normal affect Data - Labs CBC & Chem 7: 05/06/20 11:19 05/06/20 11:19 Labs: 03/18/20 08:42 oxyCODONE HCl Immed Release [Roxicodone] 5 mg PO ONCE ONE 03/18/20 09:00 CEA [Carcinoembryonic Antigen] Routine Complete Blood Count Auto Diff Routine Comprehensive Met. Panel Routine 04/01/20 00:00 Acetaminophen [Tylenol] 650 mg PO ONCE CARBOplatin [Paraplatin] 230 mg 0.9 % Sodium Chloride 250 ml IV ONCE Famotidine/PF [Pepcid/PF] 20 mg IVPUSH ONCE Heparin Sodium,Porcine Flush 500 unit IVFLUSH ONCE PACLitaxeL [Taxol] 90 mg 0.9 % Sodium Chloride 250 ml IV ONCE dexAMETHasone sod phosphate/NS [Decadron] 12 mg in 50 ml IV ONCE diphenhydrAMINE HCL [Benadryl] 25 mg IVPUSH ONCE ondansetron HCL/NS [Zofran] 16 mg in 50 ml IV ONCE 04/01/20 08:27 Complete Blood Count Auto Diff Routine Comprehensive Met. Panel Routine 04/08/20 00:00 CARBOplatin [Paraplatin] 230 mg 0.9 % Sodium Chloride 250 ml IV ONCE Heparin Sodium,Porcine Flush 500 unit IVFLUSH ONCE PACLitaxeL [Taxol] 90 mg 0.9 % Sodium Chloride 250 ml IV ONCE dexAMETHasone sod phosphate/NS [Decadron] 12 mg in 50 ml IV ONCE diphenhydrAMINE HCL [Benadryl] 25 mg IVPUSH ONCE ondansetron HCL/NS [Zofran] 16 mg in 50 ml IV ONCE 12/21/20 10:38 Complete Blood Count Auto Diff Routine Comprehensive Met. Panel Routine 04/08/20 14:53 Hydrocortisone Sod Succ/PF [SOLU-Cortef] 100 mg .ROUTE .STK-MED ONE diphenhydrAMINE HCL [Benadryl] 50 mg .ROUTE .STK-MED ONE 04/08/20 15:01 Hydrocortisone Sod Succ/PF [SOLU-Cortef] 100 mg IVPUSH ONCE ONE 04/08/20 15:40 diphenhydrAMINE HCL [Benadryl] 25 mg IVPUSH ONCE ONE 04/15/20 00:00 Acetaminophen [Tylenol] 650 mg PO ONCE CARBOplatin [Paraplatin] 220 mg 0.9 % Sodium Chloride 250 ml IV ONCE Famotidine/PF [Pepcid/PF] 20 mg IVPUSH ONCE Heparin Sodium,Porcine Flush 500 unit IVFLUSH ONCE PACLitaxeL [Taxol] 90 mg 0.9 % Sodium Chloride 250 ml IV ONCE dexAMETHasone sod phosphate/NS [Decadron] 12 mg in 50 ml IV ONCE diphenhydrAMINE HCL [Benadryl] 25 mg PO ONCE ondansetron HCL/NS [Zofran] 16 mg in 50 ml IV ONCE 04/15/20 10:24 SLIDE REVIEW Routine 04/15/20 10:24 CBC W/AUTO DIFF [Complete Blood Count Auto Diff] Routine Profile w/ Glucose [place] [Comprehensive Met. Panel] Routine 04/15/20 15:23 Hydrocortisone Sod Succ/PF [SOLU-Cortef] 100 mg .ROUTE .STK-MED ONE diphenhydrAMINE HCL [Benadryl] 25 mg IVPUSH ONCE ONE 04/15/20 15:45 Hydrocortisone Sod Succ/PF [SOLU-Cortef] 100 mg IVPUSH ONCE ONE 04/22/20 00:00 Acetaminophen [Tylenol] 650 mg PO ONCE CARBOplatin [Paraplatin] 230 mg 0.9 % Sodium Chloride 250 ml IV ONCE Famotidine/PF [Pepcid/PF] 20 mg IVPUSH ONCE Heparin Sodium,Porcine Flush 500 unit IVFLUSH ONCE PACLitaxeL [Taxol] 90 mg 0.9 % Sodium Chloride 250 ml IV ONCE dexAMETHasone sod phosphate/NS [Decadron] 12 mg in 50 ml IV ONCE diphenhydrAMINE HCL [Benadryl] 50 mg IVPUSH ONCE ondansetron HCL/NS [Zofran] 16 mg in 50 ml IV ONCE 04/22/20 10:25 SLIDE REVIEW Routine 04/22/20 10:25 CMP [Comprehensive Met. Panel] Routine Complete Blood Count Auto Diff Routine 04/22/20 12:37 Hydrocortisone Sod Succ/PF [SOLU-Cortef] 100 mg .ROUTE .STK-MED ONE 04/22/20 14:15 Hydrocortisone Sod Succ/PF [SOLU-Cortef] 100 mg IVPUSH ONCE 04/29/20 00:00 Acetaminophen [Tylenol] 650 mg PO ONCE CARBOplatin [Paraplatin] 210 mg 0.9 % Sodium Chloride 250 ml IV ONCE Famotidine/PF [Pepcid/PF] 20 mg IVPUSH ONCE Heparin Sodium,Porcine Flush 500 unit IVFLUSH ONCE PACLitaxeL [Taxol] 90 mg 0.9 % Sodium Chloride 250 ml IV ONCE dexAMETHasone sod phosphate/NS [Decadron] 12 mg in 50 ml IV ONCE diphenhydrAMINE HCL [Benadryl] 50 mg IVPUSH ONCE ondansetron HCL/NS [Zofran] 16 mg in 50 ml IV ONCE 04/29/20 09:00 Hydrocortisone Sod Succ/PF [SOLU-Cortef] 100 mg IVPUSH ONCE ONE 04/29/20 10:35 CMP [Comprehensive Met. Panel] Routine Complete Blood Count Auto Diff Routine SLIDE REVIEW Routine 04/29/20 15:03 diphenhydrAMINE HCL [Benadryl] 25 mg IVPUSH ONCE ONE 04/29/20 15:04 Hydrocortisone Sod Succ/PF [SOLU-Cortef] 50 mg IVPUSH ONCE ONE 05/06/20 00:00 Acetaminophen [Tylenol] 650 mg PO ONCE CARBOplatin [Paraplatin] 200 mg 0.9 % Sodium Chloride 250 ml IV ONCE Famotidine/PF [Pepcid/PF] 20 mg IVPUSH ONCE Heparin Sodium,Porcine Flush 500 unit IVFLUSH ONCE LORazepam [Ativan] 0.5 mg PO ONCE PACLitaxeL [Taxol] 90 mg 0.9 % Sodium Chloride 250 ml IV ONCE dexAMETHasone sod phosphate/NS [Decadron] 12 mg in 50 ml IV ONCE diphenhydrAMINE HCL [Benadryl] 50 mg IVPUSH ONCE ondansetron HCL/NS [Zofran] 16 mg in 50 ml IV ONCE 05/06/20 11:19 Complete Blood Count Auto Diff Routine Comprehensive Met. Panel Routine SLIDE REVIEW Routine 05/06/20 12:56 Hydrocortisone Sod Succ/PF [SOLU-Cortef] 100 mg .ROUTE .STK-MED ONE Laboratory Last Values WBC 2.9 X10*3/uL (4.8-10.8) L 05/06/20 11:19 RBC 3.60 X10*6/uL (4.20-5.50) L 05/06/20 11:19 Hgb 11.0 g/dl (12.0-16.0) L 05/06/20 11:19 Hct 31.4 % (37-47) L 05/06/20 11:19 MCV 87.2 fL (80-98) 05/06/20 11:19 MCH 30.6 pg (27.0-33.0) 05/06/20 11:19 MCHC 35.0 g/dl (31.0-35.0) 05/06/20 11:19 RDW 13.7 % (11.0-16.0) 05/06/20 11:19 Plt Count 120 X10*3/uL (160-400) L 05/06/20 11:19 MPV 10.3 fL (9.4-12.3) 05/06/20 11:19 Immature Gran % (Auto) 1.0 % (0.0-0.4) H 05/06/20 11:19 Neut % (Auto) 84.9 % (45-73) H 05/06/20 11:19 Lymph % (Auto) 6.2 % (20-40) L 05/06/20 11:19 [place] % (Auto) 7.9 % (2-11) 05/06/20 11:19 Eos % (Auto) 0.0 % (0-4) 05/06/20 11:19 Baso % (Auto) 0.0 % (0-2) 05/06/20 11:19 Lymph # (Auto) 0.2 X10*3/uL (1.2-4.9) L 05/06/20 11:19 [place] # (Auto) 0.2 X10*3/uL (0.1-1.2) 05/06/20 11:19 Eos # (Auto) 0.0 X10*3/uL (0.0-0.4) 05/06/20 11:19 Baso # (Auto) 0.0 X10*3/uL (0.0-0.2) 05/06/20 11:19 Abs Immat Gran (auto) 0.03 X10*3/uL (0.00-0.03) 05/06/20 11:19 Absolute Neuts (auto) 2.5 X10*3/uL (2.0-8.3) 05/06/20 11:19 Absolute Nucleated RBC 0.000 X10*3/uL (0.0-0.012) 05/06/20 11:19 Nucleated RBC % (auto) 0.0 /100WBC (0.0-0.2) 05/06/20 11:19 Smear Tech's Comments VERIFIED 05/06/20 11:19 Sodium 137 mmol/L (135-145) 05/06/20 11:19 Potassium 4.7 mmol/l (3.3-5.1) 05/06/20 11:19 Chloride 104 mmol/L (96-108) 05/06/20 11:19 Carbon Dioxide 25 mmol/L (22-29) 05/06/20 11:19 Anion Gap 13 (12-20) 05/06/20 11:19 BUN 13 mg/dL (9-16) 05/06/20 11:19 Creatinine 0.69 mg/dL (0.5-1.4) 05/06/20 11:19 Estim Creat Clear Calc 78.4 05/06/20 11:19 Estimated GFR > 60 05/06/20 11:19 Random Glucose 107 mg/dL (60-115) 05/06/20 11:19 Calcium 9.3 mg/dL (8.4-10.2) 05/06/20 11:19 Total Bilirubin 0.8 mg/dL (0.0-1.0) 05/06/20 11:19 AST 12 U/L (5-31) 05/06/20 11:19 ALT 16 U/L (0-31) 05/06/20 11:19 Alkaline Phosphatase 82 U/L (39-117) 05/06/20 11:19 Total Protein 6.7 g/dL (6.5-8.0) 05/06/20 11:19 Albumin 3.8 g/dL (3.5-5.0) 05/06/20 11:19 Carcinoembryonic Ag 5.60 mg/mL 03/18/20 09:00 Progress Note: A/P (1) Squamous cell carcinoma of right lung Status: Acute Assessment and plan: This is a pleasant unfortunate 65-year-old lady, who had onset of symptoms back in November. It started with a cough and chest pain radiating towards the back. Further workup, as detailed above, revealed a Squamous Cell Carcinoma of the lung with positive pretracheal and mediastinal lymph node. Stage IIIB. I shared the results with her, at her initial visit. Mentioned that at this point, she is unresectable. I offered her combined modality therapy. The plan was made to proceed with combined modality therapy with radiation along with systemic chemotherapy. According to the NCCN guidelines, Will use upfront carboplatin AUC of 2 and paclitaxel 50 milligrams/meter squared weekly, with concurrent RT plus additional 2 cycles every 21 days of full-dose carbo Taxol. If there is no progression after the 2 cycles, of concurrent chemoradiation, she can then get Durvalumab, 10 milligrams/kilograms IV every 2 weeks for up to 12 months. She is currently receiving radiation under the care of Dr. Rudolph, at [facility]. She started the treatment on April 01. Details of the regimen including potential side effects of hypersensitivity reaction, skin rash, shortness of breath, chest pain, nausea vomiting diarrhea, renal toxicity, pancytopenia, need for antibiotics, blood transfusion as well as growth factors were all addressed with her. Unfortunately she had reactions to the Taxol. She required extra premedications, and was able to complete the infusion, with breaks. Today is week 6. PLAN: She will have repeat imaging with PET scan, 4 weeks after completion of radiation. She will return next week for a follow-up visit to discuss further plan. Will then go on to the 2nd phase of treatment with Darvalumab. All her questions were answered to their satisfaction. Thanks, CC: Dr. Diego. Dr. Ahn. Dr. Rudolph. - Time Spent With Patient Total time spent is greater than 50% in coordination of care (as documented) at patient's floor/unit and/or counseling patient: 15 - 24 minutes
--- NOTE | 2020-05-07 12:07 | MHC.HEMONCMA ---
Patient's records, office notes, pathology and all imaging were faxed over to [facility] per patient's request.
--- NOTE | 2020-05-08 15:02 | MHC.HEMONC ---
DR. RAMIREZ CALLED REGARDING PT'S STATUS. DR RAMIREZ WANTED TO LET DR STEWART KNOW THAT PT WAS ADMITTED TO [facility] LAST NIGHT AND TESTED NEGATIVE FOR COVID19
--- NOTE | 2020-05-21 09:47 | MHC.HEMONCMA ---
DR Leonard wanted me to mail the patients treatment protocol to her. Made a copy and mailed it to the patient per Dr Leonard's request.
--- NOTE | 2020-07-15 10:55 | MHC.HEMONCMA ---
Per patient, she has switched to [facility] for her oncology services. She will no longer be a patient here.
== END | disposition home or self-care (01) ==
LOC: HO.ONC 03-18 07:50
PROVIDERS: PCP Internal Medicine; Referring Provider Surgery; Visit Provider Internal Medicine Medical Oncology
DX: Z51.11 Encounter for antineoplastic chemotherapy (principal); C34.11 Malignant neoplasm of upper lobe, right bronchus or lung; C77.0 Secondary and unspecified malignant neoplasm of lymph nodes of head, face and neck
CPT/HCPCS: 36415; 80053; 82378; 85025; 88377; 96375; 96376; 96413; 96415; 96417; 99204; 99214; J1100; J1200; J2405; J9045; J9267; Q0163